=== PATIENT | female | born 1970 | race Hispanic/Latino ===

== ENCOUNTER → 2019-09-07 | Outpatient (CLI) | payer OTHER | END | disposition home or self-care (01) | LOC: OIH 15:55 | PROVIDERS: ATTEND Internal Medicine | DX: M06.4 Inflammatory polyarthropathy (principal) | CPT/HCPCS: 73130 ==

== ENCOUNTER 2020-12-02 14:28 | Emergency (ER) | payer BC, OTHER ==
[2020-12-02 14:52] LABS: APPEARANCE,URINE CLOUDY (CLEAR); BILIRUBIN,URINE SMALL (NEGATIVE); COLOR,URINE RED (YELLOW); GLUCOSE, URINE (UA) NEGATIVE (NEGATIVE); KETONES,URINE 5 mg/dL (NEGATIVE); LEUKOCYTE ESTERASE ,URINE TRACE (NEGATIVE); NITRATE,URINE NEGATIVE (NEGATIVE); OCCULT BLOOD,URINE LARGE (NEGATIVE); PROTEIN,URINE 100 mg/dL (NEGATIVE)
[2020-12-02] MEDS ORDERED: SODIUM CHLORIDE 0.9% 1000ML 1,000 ML IV ONE (14:54)
[2020-12-02] MEDS ORDERED: MORPHINE SULFATE 4 MG/1ML SYG ONE (14:56)
[2020-12-02] MEDS ORDERED: KETOROLAC TROMETHAMINE 30MG/ML ONE (14:56)
[2020-12-02 15:02] LABS: BASOPHILS % (AUTO) 0.2 % (0.0-5.0); EOSINOPHILS % (AUTO) 2.1 % (0.0-8.0); HEMATOCRIT 48.5 % (36-48); LYMPHOCYTES % (AUTO) 40.7 % (21.0-51.0); MEAN CORPUSCULAR HGB CONC 32.2 g/dL (32.0-36.0); MEAN CORPUSCULAR VOLUME 93.3 fL (79-99); NEUTROPHILS % (AUTO) 49.5 % (40.0-77.0); PLATELET COUNT (AUTO) 242 K/uL (130-400); RED CELL DISTRIBUTION WIDTH 13.2 % (11.0-15.5); WHITE BLOOD COUNT (AUTO) 8.2 K/uL (4.8-10.8)
[2020-12-02 15:05] LABS: BACTERIA,URINE Few /HPF (None Seen); MUCUS,URINE Rare LPF (None Seen); RBC,URINE >100 /HPF (0-1); SQUAMOUS EPITHELIAL CELL,UR 0-2 /HPF (0-2)
[2020-12-02 15:16] LABS: POTASSIUM 3.9 mmol/L (3.5-5.1)
[2020-12-02 15:17] LABS: INR 1.03 (0.85-1.15); PROTHROMBIN TIME 11.2 SEC (9.6-11.6)
[2020-12-02 15:18] LABS: PARTIAL THROMBOPLASTIN TIME 25.9 SEC (26.3-35.5)
[2020-12-02 15:21] LABS: ALBUMIN 3.7 g/dL (3.5-5.0); BILIRUBIN,TOTAL 0.5 mg/dL (0.2-1.0); TOTAL PROTEIN, SERUM 8.7 g/dL (6.0-8.3)
[2020-12-02] MEDS ORDERED: TAMSULOSIN HCL 0.4 MG CAP.ER.24H ONE (15:56)
== END 2020-12-02 16:32 | disposition home or self-care (01) ==
LOC: EDH 14:28
DX: N20.0 Calculus of kidney (principal); I10 Essential (primary) hypertension
CPT/HCPCS: 36415; 74176; 80053; 81001; 83690; 84484; 85025; 85610; 85730; 93005; 96365; 96375; 99285; J1885; J2270; J2550; J7030

== ENCOUNTER → 2021-06-03 | Outpatient (CLI) | payer OTHER | END | disposition home or self-care (01) | LOC: DTH 12:04 | PROVIDERS: ATTEND Surgery | DX: G47.33 Obstructive sleep apnea (adult) (pediatric) (principal); E66.01 Morbid (severe) obesity due to excess calories; I10 Essential (primary) hypertension; E11.9 Type 2 diabetes mellitus without complications; K76.0 Fatty (change of) liver, not elsewhere classified | CPT/HCPCS: 97802 ==

== ENCOUNTER 2021-06-28 06:50 | Day surgery (SDC) | payer OTHER ==
[~2021-06-28] VITALS: Ht 157.5 cm; Wt 105.7 kg
[2021-06-28] VITALS (9 sets, daily range): BP systolic 108–134; BP diastolic 61–78
[~2021-06-28 06:50] MED LIST: AMLO-257 PO
[2021-06-28] MEDS ORDERED: 0.9%NACL 1000ML 1,000 ML IV ONE (07:33)
[2021-06-28] MEDS ORDERED: PROPOFOL 10 MG/ML 20ML VIAL IV ONE (07:43)
[2021-06-28] MEDS ORDERED: LIDOCAINE PF 100MG/5ML (2%) SYRINGE 5ML ONE (07:43)
[2021-06-28] MEDS ORDERED: GLIP1TAB6 PO ×2 (07:58)
== END 2021-06-28 09:00 | disposition home or self-care (01) ==
LOC: DAH 06:50
PROVIDERS: ATTEND Surgery
DX: K21.9 Gastro-esophageal reflux disease without esophagitis (principal); G47.30 Sleep apnea, unspecified; I10 Essential (primary) hypertension; E11.9 Type 2 diabetes mellitus without complications; E66.01 Morbid (severe) obesity due to excess calories; M19.90 Unspecified osteoarthritis, unspecified site; Z83.3 Family history of diabetes mellitus; Z82.49 Family history of ischemic heart disease and other diseases of the circulatory system; Z79.899 Other long term (current) drug therapy; Z68.41 Body mass index [BMI] 40.0-44.9, adult; Z98.890 Other specified postprocedural states
CPT/HCPCS: 43235; 82948 ×2; A4215 ×2; A4221; A4222; A4223; A4606; A4620; A4657 ×2; A4663; J2001; J2704; J7030

== ENCOUNTER 2021-07-01 06:36 | Inpatient (IN) | payer OTHER ==
[2021-06-25 15:30] LABS: BASOPHILS % (AUTO) 0.3 % (0.0-5.0); EOSINOPHILS % (AUTO) 0.8 % (0.0-8.0); HEMATOCRIT 47.6 % (36-48); LYMPHOCYTES % (AUTO) 22.2 % (21.0-51.0); MEAN CORPUSCULAR HEMOGLOBIN 30.7 pg (27.0-33.0); MEAN CORPUSCULAR HGB CONC 31.9 g/dL (32.0-36.0); MEAN CORPUSCULAR VOLUME 96.2 fL (79-99); MONOCYTES % (AUTO) 4.8 % (3.0-13.0); NEUTROPHILS % (AUTO) 71.5 % (40.0-77.0); PLATELET COUNT (AUTO) 228 K/uL (130-400); RED BLOOD CELL COUNT(AUTO) 4.95 MIL/uL (4.00-5.50); WHITE BLOOD COUNT (AUTO) 9.3 K/uL (4.8-10.8)
[2021-06-25 15:38] LABS: CREATININE 0.7 mg/dL (0.5-1.5); POTASSIUM 4.1 mmol/L (3.5-5.1)
[2021-06-27 14:53] VITALS: BP 136/79
[2021-07-01] VITALS (23 sets, daily range): BP systolic 118–147; BP diastolic 67–90
[~2021-07-01] VITALS: Ht 157.5 cm; Wt 105.1 kg
[~2021-07-01 06:36] MED LIST changes: +0.9% NACL 500ML IV.SOLN 500 ML IV SCH; +CEFAZOLIN 3GM /D5W 100ML 100 ML IV SCH; +GLIP1TAB6 PO
[2021-07-01] MEDS ORDERED: 0.9%NACL 1000ML 1,000 ML IV ONE (07:32)
[2021-07-01] MEDS: CEFAZOLIN SODIUM 1 GM VIAL ONE ×2 (07:45→09:11)
[2021-07-01] MEDS ORDERED: VITAMIN D PO ×2 (07:48)
[2021-07-01] MEDS ORDERED: BUPIVACAINE/PF 0.5% 30ML VIAL ONE (07:52)
[2021-07-01] MEDS ORDERED: SUCCINYLCHOLINE 200MG/10ML SYR ONE (07:56)
[2021-07-01] MEDS ORDERED: GLYCOPYRROLATE 1 MG/5 ML SYRINGE ONE ×2 (07:56→10:05)
[2021-07-01] MEDS ORDERED: PROPOFOL 10 MG/ML 20ML VIAL IV ONE (07:56)
[2021-07-01] MEDS ORDERED: ONDANSETRON 4MG INJ ONE (07:56)
[2021-07-01] MEDS ORDERED: LIDOCAINE PF 100MG/5ML (2%) SYRINGE 5ML ONE (07:56)
[2021-07-01] MEDS ORDERED: DEXAMETHASONE SOD PHOSPHATE 10MG/ML 1ML VIAL ONE (07:56)
[2021-07-01] MEDS ORDERED: ROCURONIUM 10MG/1ML SYR 10 MG/ML ML ONE (07:57)
[2021-07-01] MEDS ORDERED: NEOSTIGMINE 5MG/5ML SYR IV ONE ×2 (07:57→10:05)
[2021-07-01] MEDS ORDERED: FENTANYL CITRATE PF 50 MCG/1 ML 2ML VIAL ONE (07:57)
[2021-07-01] MEDS ORDERED: MIDAZOLAM HCL 1 MG/ML 2ML VIAL ONE ×2 (07:57)
[2021-07-01] MEDS ORDERED: MEPERIDINE-PF 25 MG/ML SYG ONE ×3 (07:58→10:49)
[2021-07-01] MEDS ORDERED: EPHEDRINE SULFATE 50 MG/ML AMPULE ONE (09:03)
[2021-07-01] MEDS ORDERED: KETOROLAC 30MG VIAL (30MG/ML) IM PRN (10:30)
[2021-07-01] MEDS: LACTATED RINGERS 1000ML 1,000 ML IV SCH ×2 (10:30→18:30)
[2021-07-01] MEDS ORDERED: MORPHINE 5 MG/ML VIAL (5MG OR GREATER DOSE) IVP PRN (10:30)
[2021-07-01] MEDS: MORPHINE 4 MG SYG IVP PRN ×2 (12:36→16:20)
[2021-07-01] MEDS: ONDANSETRON 4MG INJ IVP PRN (15:28)
[2021-07-01] MEDS: KETOROLAC 30MG VIAL (30MG/ML) IM SCH (19:58)
[2021-07-01] MEDS: FAMOTIDINE 20MG VIAL IV SCH (23:19)
[2021-07-01] MEDS: ENOXAPARIN SODIUM 30 MG/0.3 ML SQ SCH (23:21)
[2021-07-02] MEDS: KETOROLAC 30MG VIAL (30MG/ML) IM SCH (01:49)
[2021-07-02] MEDS: LACTATED RINGERS 1000ML 1,000 ML IV SCH ×3 (03:43→19:56)
[2021-07-02 04:14] VITALS: BP 126/75
[2021-07-02 05:33] LABS: BASOPHILS % (AUTO) 0.2 % (0.0-5.0); EOSINOPHILS % (AUTO) 1.4 % (0.0-8.0); HEMATOCRIT 46.1 % (36-48); LYMPHOCYTES % (AUTO) 12.9 % (21.0-51.0); MEAN CORPUSCULAR HEMOGLOBIN 30.4 pg (27.0-33.0); MEAN CORPUSCULAR HGB CONC 32.3 g/dL (32.0-36.0); MEAN CORPUSCULAR VOLUME 94.1 fL (79-99); MONOCYTES % (AUTO) 4.4 % (3.0-13.0); NEUTROPHILS % (AUTO) 80.6 % (40.0-77.0); PLATELET COUNT (AUTO) 254 K/uL (130-400); RED CELL DISTRIBUTION WIDTH 12.8 % (11.0-15.5)
[2021-07-02 05:50] LABS: CREATININE 0.6 mg/dL (0.5-1.5); POTASSIUM 4.3 mmol/L (3.5-5.1)
[2021-07-02 08:00] VITALS: BP 136/77
[2021-07-02] MEDS: ONDANSETRON 4MG INJ IVP PRN ×2 (08:39→16:04)
[2021-07-02] MEDS: FAMOTIDINE 20MG VIAL IV SCH ×2 (08:39→19:53)
[2021-07-02] MEDS: KETOROLAC 30MG VIAL (30MG/ML) IVP SCH ×4 (08:40→20:00)
[2021-07-02] MEDS: ENOXAPARIN SODIUM 30 MG/0.3 ML SQ SCH ×2 (08:40→19:55)
[2021-07-02 12:00] VITALS: BP 113/57
[2021-07-02] MEDS: MORPHINE 4 MG SYG IVP PRN ×2 (13:55→19:53)
[2021-07-02 16:00] VITALS: BP 141/76
[2021-07-02 20:04] VITALS: BP 147/71
[2021-07-02 23:19] VITALS: BP 130/68
[2021-07-03] MEDS: KETOROLAC 30MG VIAL (30MG/ML) IVP SCH ×3 (02:20→14:12)
[2021-07-03 03:35] VITALS: BP 137/76
[2021-07-03] MEDS: LACTATED RINGERS 1000ML 1,000 ML IV SCH ×2 (03:55→10:30)
[2021-07-03 07:49] VITALS: BP 141/81
[2021-07-03] MEDS: FAMOTIDINE 20MG VIAL IV SCH (10:42)
[2021-07-03] MEDS: ENOXAPARIN SODIUM 30 MG/0.3 ML SQ SCH (10:42)
[2021-07-03 11:00] VITALS: BP 122/66
[2021-07-03 16:17] VITALS: BP 145/79
== END 2021-07-03 18:39 | disposition home or self-care (01) | DRG 621 ==
LOC: DAHIP 06:36 → 3AH 11:04
PROVIDERS: ADMIT Surgery; ATTEND Surgery
PROC: 0DB64Z3 Excision of Stomach, Percutaneous Endoscopic Approach, Vertical (ICD-10-PCS; principal; 2021-07-01 08:17)
DX: E66.01 Morbid (severe) obesity due to excess calories (principal); E11.9 Type 2 diabetes mellitus without complications; I10 Essential (primary) hypertension; M19.90 Unspecified osteoarthritis, unspecified site; Z20.822 Contact with and (suspected) exposure to COVID-19; Z68.41 Body mass index [BMI] 40.0-44.9, adult; Z83.3 Family history of diabetes mellitus; Z82.49 Family history of ischemic heart disease and other diseases of the circulatory system
CPT/HCPCS: 36415; 71045; 80048; 82948; 84703; 85025; 85730; 86850; 86900; 86901; 87635; 93005; 97039; G0378; J0330; J0690; J1100; J1650; J1885; J2001; J2175; J2250; J2270; J2405; J2704; J2710; J3010; J3490; J7030; J7040; J7120

== ENCOUNTER 2023-09-22 20:20 | Emergency (ER) | payer BC, OTHER ==
[~2023-09-22] VITALS: Ht 157.5 cm; Wt 74.8 kg
[2023-09-23] MEDS ORDERED: MORPHINE 2 MG SYG IM PRN
[2023-09-23] MEDS ORDERED: DIAZEPAM 5 MG/ML 2 ML SYG IVP ONE (01:00)
[2023-09-23] MEDS ORDERED: FAMOTIDINE 20MG VIAL IV ONE (01:00)
[2023-09-23] MEDS ORDERED: KETOROLAC 30MG VIAL (30MG/ML) IVP ONE (01:00)
[2023-09-23] MEDS ORDERED: NAPR-1192 PO (02:24)
[2023-09-23] MEDS ORDERED: CYCL10TA16 PO (02:24)
[2023-09-23 02:39] VITALS: BP 152/80; PULSE 82; RESP 18; O2SAT 99
== END 2023-09-23 02:41 | disposition home or self-care (01) ==
LOC: EDH 20:20
DX: M54.12 Radiculopathy, cervical region (principal); E11.9 Type 2 diabetes mellitus without complications; I10 Essential (primary) hypertension
CPT/HCPCS: 99284; 96374; 96375; 96372; J2270; J3490; J3360; J1885